=== PATIENT | female | born 1980 | race Caucasian/White ===

== ENCOUNTER 2017-07-31 14:46 | Outpatient (CLI) | payer BC ==
[2017-07-31 15:57] LABS: #Lymphocytes 1.5 thou/uL (1.20-3.40); #Monocytes 0.4 thou/uL (0.11-0.59); #Neutrophils 2.6 thou/uL (1.40-6.50); %Basophils 0.8 % (0.0-1.0); %Eosinophils 0.8 % (0.0-10.0); %Lymphocytes 32.6 % (21.0-51.0); %Monocytes 7.7 % (0.0-10.0); Hemoglobin 9.3 g/dL (12.0-16.0); Mean Corpuscular HGB CONC 33.7 g/dL (32.0-36.0); Mean Corpuscular Hemoglobin 31.5 pg (27.0-31.0); Mean Corpuscular Volume 93.7 fL (78.0-98.0); Platelet Count 200 thou/uL (130-400); RBC Distribution Width 12.8 % (11.5-14.5); Red Blood Cell (RBC) Count 2.96 mill/uL (4.20-5.40); White Blood Cell (WBC) Count 4.5 thou/uL (4.8-10.8)
[2017-07-31 16:15] LABS: Anion Gap 11 mmol/L (10-20); BUN (Urea Nitrogen) 10 mg/dL (7.0-18.7); Calc. Creatinine Clearance 0 mL/min (70-130); Calcium 9.1 mg/dL (7.8-10.44); Carbon Dioxide 23 mmol/L (22-29); Chloride 111 mmol/L (98-107); Estimated GFR-MDRD 79; Glucose 87 mg/dL (70-105); Potassium 3.8 mmol/L (3.5-5.1); Sodium 141 mmol/L (136-145)
== END 2017-07-31 14:47 | disposition home or self-care (01) ==
LOC: LABBT 14:46
PROVIDERS: ATTEND Surgery
DX: Z01.812 Encounter for preprocedural laboratory examination (principal); K64.8 Other hemorrhoids
CPT/HCPCS: 80048; 85025

== ENCOUNTER 2017-08-01 05:58 | Day surgery (SDC) | payer BC ==
[2017-07-31 14:55] VITALS: BMI 22.4
[2017-08-01] MEDS ORDERED: Fentanyl 250 MCG/5 ML VIAL ONE (06:14)
[2017-08-01] MEDS ORDERED: Midazolam HCl 2 mg/2 ml Vial ONE (06:14)
[2017-08-01] MEDS ORDERED: Lidocaine 2% Jelly 5 ML TUBE ONE ×2 (06:14→07:14)
[2017-08-01] MEDS ORDERED: cefOXitin 2 GM VIAL ONE (06:16)
[2017-08-01] MEDS ORDERED: Sodium Chloride 0.9% 100 ML ONE (06:16)
[2017-08-01] MEDS ORDERED: Lidocaine 2% 10 ML INJ ONE (07:14)
[2017-08-01] MEDS ORDERED: Bupivacaine/Epinephrine 0.25% 30 ML VIAL ONE (07:14)
[2017-08-01] MEDS ORDERED: Gelfilm 1 EA Packet ONE (07:16)
[2017-08-01] MEDS ORDERED: Ondansetron HCl/PF 4 MG/2 ML Vial IVP PRN (09:45)
[2017-08-01] MEDS ORDERED: Promethazine HCl 25 MG/ML VIAL IM/IV PRN (09:45)
[2017-08-01] MEDS ORDERED: Fentanyl 100 MCG/2 ML VIAL ONE (09:51)
[2017-08-01] MEDS ORDERED: Non-Formulary Medication 1 EACH PO PRN (10:01)
[2017-08-01] MEDS ORDERED: Ketorolac Tromethamine 30 MG/ML VIAL ONE (10:26)
[2017-08-01] MEDS ORDERED: Dexamethasone 20 MG/5 ML VIAL ONE (13:17)
[2017-08-01] MEDS ORDERED: PROPOFOL 200 MG/20 ML VIAL ONE ×2 (13:17)
[2017-08-01] MEDS ORDERED: Lidocaine 1% PF 5 ML VIAL ONE (13:17)
[2017-08-01] MEDS ORDERED: ePHEDrine/0.9% NaCl/PF SYRINGE 50 mg/10 ml ONE (13:17)
[2017-08-01] MEDS ORDERED: Glycopyrrolate 0.2 MG/ML 5 ML SYRINGE ONE (13:17)
[2017-08-01] MEDS ORDERED: Ondansetron HCl/PF 4 MG/2 ML Vial ONE (13:17)
--- NOTE | 2017-08-02 13:53 | OP ---
DATE OF PROCEDURE: 08/01/2017 PREOPERATIVE DIAGNOSIS: Internal hemorrhoids. POSTOPERATIVE DIAGNOSIS: Internal hemorrhoids. PROCEDURE: PPH stapled hemorrhoidectomy. SURGEON: Junior Fields M.D. ANESTHESIA: General. ESTIMATED BLOOD LOSS: Minimal. COMPLICATIONS: None. SPECIMEN: Hemorrhoids. TECHNIQUE: The patient was taken to the operating room, placed supine on the table. After general a nesthetic was obtained, the patient was placed in a prone position. Her buttocks is taped open and h er anal area prepped and draped in a sterile fashion. Anal exam reveals no obvious anal canal mass. Sphincter tone is good. The obturator and sphincter protecting device is placed in the usual fashio n and sewn to the perianal skin using silk suture. This completely protected the sphincter complex. The sew assist is used to place a pursestring of Prolene suture, 2 cm above the dentate line. The s tapler was opened to its fullest extent and the anvil placed above the pursestring. The pursestring is tied down and the ends of the string are pulled through the stapler. The stapler is tightened missy n into the green zone. Exam through the vagina reveals the posterior wall of the vagina to not be in volved in the staple line. The stapler is fired. Good rings of tissue are obtained. A few bleeders on the staple line were oversewn using Vicryl. Gelfoam and lidocaine jelly was packed in the anal c anal. The sphincter protector was removed. The patient was en route recovery in stable condition. All instrument counts, needle counts, lap counts were correct.
== END 2017-08-01 12:20 | disposition home or self-care (01) ==
LOC: SDC 05:58
PROVIDERS: ATTEND Surgery
PROC: 06BY0ZC Excision of Hemorrhoidal Plexus, Open Approach (ICD-10-PCS; principal; 2017-08-01)
DX: K64.8 Other hemorrhoids (principal); E03.9 Hypothyroidism, unspecified; Z79.899 Other long term (current) drug therapy
CPT/HCPCS: 88304; 96374; 96375; J0131; J0694; J1100; J1885; J2001; J2250; J2405; J2704; J3010; J7050

== ENCOUNTER 2022-04-06 13:30 | Outpatient (CLI) | payer BC | END 2022-04-06 13:31 | disposition home or self-care (01) | LOC: BICMAMMO 13:30 | PROVIDERS: ATTEND Family Medicine | DX: Z12.31 Encounter for screening mammogram for malignant neoplasm of breast (principal); N64.89 Other specified disorders of breast; Z98.82 Breast implant status | CPT/HCPCS: 77063; 77067 ==

== ENCOUNTER 2022-04-13 08:15 | Outpatient (CLI) | payer BC | END 2022-04-13 08:16 | disposition home or self-care (01) | LOC: BICMAMMO 08:15 | PROVIDERS: ATTEND Family Medicine | DX: R92.8 Other abnormal and inconclusive findings on diagnostic imaging of breast (principal); Z98.82 Breast implant status | CPT/HCPCS: G0279 ==

== ENCOUNTER 2023-04-19 16:10 | Outpatient (CLI) | payer BC | END 2023-04-19 16:11 | disposition home or self-care (01) | LOC: RAD 16:10 | PROVIDERS: ATTEND Family Medicine | DX: M54.2 Cervicalgia (principal); M54.6 Pain in thoracic spine; M54.50 Low back pain, unspecified; M43.9 Deforming dorsopathy, unspecified | CPT/HCPCS: 72040; 72072; 72100; 72220 ==